=== PATIENT | male | born 1960 | race Two or more races ===

== ENCOUNTER 2020-05-07 09:11 | Outpatient (CLI) | payer BC | END 2020-05-07 23:59 | disposition home or self-care (01) | LOC: MSC 09:11 | PROVIDERS: ATTEND Internal Medicine | DX: N40.0 Benign prostatic hyperplasia without lower urinary tract symptoms (principal); K21.9 Gastro-esophageal reflux disease without esophagitis; M54.2 Cervicalgia; I10 Essential (primary) hypertension; E55.9 Vitamin D deficiency, unspecified; H93.19 Tinnitus, unspecified ear ==